=== PATIENT | female | born 1940 | race Caucasian/White ===

== ENCOUNTER 2019-10-28 18:27 | Emergency (ER) | payer MEDICARE, BC ==
[~2019-10-28] VITALS: Ht 162.6 cm; Wt 68.9 kg
[~2019-10-28 18:27] MED LIST: LISI-605 PO
--- NOTE | 2019-10-28 18:35 | NUR ---
[id number] from home c/o dizziness that started 1 hour ago. to er bed 10, hooked to monitor, changed to hosp gown, provided w warm blanket, awaiting md campbell
--- NOTE | 2019-10-28 18:39 | NUR ---
Dr monique at bedside
[2019-10-28] MEDS ORDERED: diphenhydrAMINE HCL 50 MG/ML VIAL ONE (18:52)
[2019-10-28] MEDS ORDERED: ONDANSETRON HCL/PF 4 MG/2 ML VIAL ONE (18:52)
[2019-10-28 18:54] LABS: BASOPHILS % (AUTO) 0.7 % (0.0-2.0); EOSINOPHILS % (AUTO) 2.7 % (0.0-6.0); HEMATOCRIT 41 % (33-45); HEMOGLOBIN 13.7 g/dL (11.5-14.8); LYMPHOCYTES # (AUTO) 1.1 /CMM (0.8-4.8); MEAN CORPUSCULAR HGB CONC 33 g/dl (31.0-36.0); MEAN CORPUSCULAR VOLUME 92 fL (82-100); MONOCYTES # (AUTO) 0.4 /CMM (0.1-1.30); MONOCYTES % (AUTO) 8.2 % (2.0-12.0); NEUTROPHILS # (AUTO) 3.4 /CMM (1.8-8.9); NEUTROPHILS % (AUTO) 66.4 % (43.0-81.0); PLATELET COUNT (AUTO) 166 /CMM (150-450); RED BLOOD CELL COUNT(AUTO) 4.45 MIL/uL (4.0-5.2); WHITE BLOOD COUNT (AUTO) 5.1 K/uL (4.3-11.0)
[2019-10-28] MEDS ORDERED: diphenhydrAMINE HCL 50 MG/ML VIAL IV ONE (19:00)
[2019-10-28] MEDS ORDERED: ONDANSETRON HCL/PF 4 MG/2 ML VIAL IVP ONE (19:00)
[2019-10-28] MEDS ORDERED: IV NS 0.9% 1,000 ML BAG IV ONE (19:00)
[2019-10-28 19:06] LABS: CALCIUM, SERUM 10.5 mg/dL (8.5-10.1); CARBON DIOXIDE 28 mmol/L (21-32); CHLORIDE 106 mmol/L (98-107); CREATININE 0.7 mg/dL (0.6-1.3); GLUCOSE 113 mg/dL (74-106); POTASSIUM 3.9 mmol/L (3.5-5.1); SODIUM SERUM 142 mmol/L (136-145); UREA NITROGEN, BLOOD 29 mg/dL (7-18)
[2019-10-28 19:12] LABS: ALANINE AMINOTRANSFERASE 60 U/L (12-78); ALBUMIN 4.1 g/dL (3.4-5.0); ALKALINE PHOSPHATASE 115 U/L (46-116); ASPARTATE AMINOTRANSFERASE 39 U/L (15-37); BILIRUBIN,DIRECT 0.1 mg/dL (0.0-0.2); BILIRUBIN,TOTAL 0.5 mg/dL (0.2-1.0)
--- NOTE | 2019-10-28 19:53 | NUR ---
URINE COLLECTED AND SENT TO LAB
--- NOTE | 2019-10-28 19:53 | NUR ---
URINE COLLECTED AND SENT TO LAB
--- NOTE | 2019-10-28 20:00 | NUR ---
PT BROUGHT TO CT
[2019-10-28 20:13] LABS: APPEARANCE,URINE Clear (CLEAR); BILIRUBIN,URINE Negative (NEGATIVE); BLOOD, URINE Negative Ery/uL (NEGATIVE); COLOR,URINE Yellow (YELLOW); KETONES,URINE Negative (NEGATIVE); LEUKOCYTE ESTERASE ,URINE Trace (NEGATIVE); NITRITE, URINE Negative (NEGATIVE); PROTEIN,URINE Negative (NEGATIVE); UGLUCOSE Negative (NEGATIVE); UROBILINOGEN,URINE 0.2 EU/dL (0.2)
--- NOTE | 2019-10-28 20:20 | NUR ---
PT BACK FROM CT
[2019-10-28 20:24] LABS: BACTERIA,URINE None seen /HPF (None Seen); RBC,URINE 0-2 /HPF (0-2); SQUAMOUS EPITHELIAL CELL,UR Few /HPF (None Seen)
[2019-10-28 21:01] VITALS: BP 126/74
--- NOTE | 2019-10-28 21:01 | NUR ---
Patient discharged to home in stable condition. Written and verbal after care instructions given. Patient verbalizes understanding of instruction.IV removed. Catheter intact and site benign. Pressure and 4x4 applied to site. No bleeding noted.
== END 2019-10-28 21:02 | disposition home or self-care (01) ==
LOC: ER 18:27
DX: R42 Dizziness and giddiness (principal); R51 Headache; I10 Essential (primary) hypertension; K21.9 Gastro-esophageal reflux disease without esophagitis; E78.5 Hyperlipidemia, unspecified; E03.9 Hypothyroidism, unspecified; Z85.828 Personal history of other malignant neoplasm of skin; Z90.710 Acquired absence of both cervix and uterus; Z98.890 Other specified postprocedural states; Z90.89 Acquired absence of other organs; Z79.899 Other long term (current) drug therapy; Z88.8 Allergy status to other drugs, medicaments and biological substances; Z88.1 Allergy status to other antibiotic agents; Z88.2 Allergy status to sulfonamides; Z88.6 Allergy status to analgesic agent
CPT/HCPCS: 36415; 70450; 71045; 80048; 80076; 81001; 82962; 84484; 85025; 85730; 93005; 96361; 96374; 96375; 99284; J1200; J2405; J7030; 81000-TC